=== PATIENT | female | born 1985 | race Hispanic/Latino ===

== ENCOUNTER 2023-10-24 15:28 | Emergency (ER) | payer SELFPAY ==
[2023-10-24 15:28] VITALS: BP 134/78; PULSE 96; RESP 16; TEMP 36.2; O2SAT 98
--- NOTE | 2023-10-24 15:54 | ED.VIS.GI ---
HPI HPI - GI History of Present Illness Chief Complaint: Nausea/Vomiting Informant: patient and family Abdominal Pain/Flank Pain Onset: Today Nausea/Vomiting/Emesis GI Symptom: Positive for Nausea and Vomiting Onset: Today and Hours Severity: Mild Diarrhea/Melena/Hematochezia GI Symptom: Negative for Diarrhea, Melena or Hematochezia Associated Symptoms Associated Symptoms: Negative for Dysuria, Frequency, Hematuria or Urgency Narrative Narrative: 38-year-old , [id number] female that we are using emergency room technician iPad to get history from both her and her family. No significant past medical history. Reportedly today started having nausea and vomiting. No significant abdominal pain. No fever. No dysuria. She takes a blood pressure medication occasionally but not daily. She has had no prior abdominal surgeries that they are aware of. She has had no recent hospitalizations. Prior similar symptoms: Yes PFSH PFS Medical History (Updated 10/24/23 @ 18:[address] Pedrito Parra MD) HTN (hypertension) HTN (hypertension) Medical History no medical history no medical history Home Medications ondansetron 4 mg disintegrating tablet 4 mg PO Q8H PRN nausea and vomiting #7 tabs 10/24/23 [Rx Last Taken Unknown] Allergy/AdvReac Type Severity Reaction Status Date / Time No Known Allergies Allergy Verified 10/24/23 15:30 Family History unable to obtain Surgical History no surgical history no surgical history Social History Smoking Status: Never smoker ROS ROS ED ROS Narrative Nausea and vomiting. Review of Systems ROS Unobtainable: Denies due to encephalopathy Constitutional Constitutional ED: Denies chills or fever(s) ENT ENT ED: Denies ear pain, rhinorrhea or sore throat Cardiovascular Cardiovascular: Denies chest pain or palpitations Respiratory/Chest Respiratory/Chest: Denies cough, dyspnea or dyspnea on exertion Gastrointestinal Gastrointestinal: Reports nausea and vomiting; Denies abdominal pain, constipation, diarrhea or melena Genitourinary Genitourinary ED: Denies dysuria or hematuria Musculoskeletal Musculoskeletal: Denies arthralgias, back pain or myalgias Integumentary Denies abscess, Abrasions or rash Neurologic Neurologic: Denies headache(s) Psychiatric Psychiatric: Denies anxiety or depression Endocrine Endocrinology: Denies polydipsia, polyphagia or polyuria Hematologic/Lymphatic Hematologic/Lymphatic: Denies easy bleeding Allergic/Immunologic Allergic/Immunologic ED: Denies mouth swelling EXAM Physical Exam Narrative Exam Narrative: Well-appearing 38-year-old female. Vital signs are stable afebrile. Initial blood pressure 134/78. Pulse ox 98% on room air no signs of hypoxia. No distress. HEENT exam unremarkable. Atraumatic. Moist mucous membranes. Pupils round reactive light. Scalp nontender. Neck nontender no lymphadenopathy. No meningismus. Lungs clear to auscultation bilaterally. Heart regular rhythm no murmur rate about 95. Chest wall and ribs nontender. Abdomen soft, nontender, nondistended without peritoneal signs. Normal bowel sounds. Soft. No hernia or mass. No distention. No right upper or right lower quadrant tenderness. No mass. Moving all 4 extremities. Nontender no edema. Normal motor strength. Back nontender. Neurologically she is awake and alert with no focal motor deficits. Const Vital Signs: 10/24/23 15:28 Temperature 97.2 F L Temperature Source Temporal Pulse Rate 96 Respiratory Rate 16 Blood Pressure 134/78 H Blood Pressure Mean 96 Pulse Ox 98 Oxygen Delivery Method Room Air Positive well nourished and well developed; Negative for obese, cachectic, contractures or unkempt General Appearance ED: well developed and NAD; Negative for unkempt, cachectic, contractures or pallor Nutritional Appearance: Negative for cachectic or obese HEENT Reports moist mucous membranes; Denies dry mucous membranes normocephalic and atraumatic; Negative for trauma or tenderness Mouth ED: No dry mucous membranes Mouth: No dry mucous membranes Eyes PERRL and EOMs intact bilaterally General Eye ED: Negative for pale conjunctiva, scleral icterus or other Neck no lymphadenopathy, supple and no JVD General: Negative for tenderness Carotids: Negative for other Lymph Lymphatic: Negative for other Resp normal respiratory effort and clear to auscultation bilaterally Effort and Inspection: Negative for respiratory distress Auscultation: Negative for rales, rhonchi or wheezes Cardio regular rate, regular rhythm, S1 normal heart sound, S2 normal heart sound and no murmurs Rate: Negative for bradycardia or tachycardic Rhythm: Negative for abnormal rhythm GI non-tender, non-distended and no masses Inspection: Negative for abdominal distention Auscultation: normoactive bowel sounds Palpation: soft; Negative for tender, guarding, rigid, hepatomegaly, splenomegaly, hernia, mass, pulsatile mass or rebound tenderness present Back/Spine no CVA tenderness General Back: Negative for CVA tenderness Cervical Spine: Negative for cervical spine tenderness Thoracic Spine / Upper Back: Negative for thoracic spinal tenderness Lumbar Spine / Lower Back: Negative for lumbar spinal tenderness Coccyx: Negative for other Extremity full ROM General Extremety ED: Negative for edema, tenderness or other findings General Extremity: Negative for edema or other findings Neuro CN's II-XII intact bilaterally, moves all extremities and No no sensory deficits noted Sensorium / Orientation: alert, oriented to person, oriented to place and oriented to time; Negative for orientation impaired, confused, lethargic or stuporous Motor Exam: strength 5/5 throughout; Negative for general weakness or strength abnormal Psych mental status grossly normal and thought process normal Appearance: Negative for unkempt Attitude: No agitated Mood & Affect: Negative for depressed, anxious or tearful Skin no wounds General Skin Exam: Negative for jaundice or pallor Rashes: no rashes Trauma: Negative for abrasion Nails: Negative for discolored MDM MDM MDM Narrative Medical decision making narrative: 38-year-old [id number] female with nausea and vomiting today. Exam benign. Moist mucous membranes. Most likely viral syndrome. Abdomen is nontender. She will be treated IV fluids. Screening labs. I do not think she needs any imaging. UA. IV Zofran and reevaluated. Repeat exam at 5:30 PM patient doing well. Abdomen benign. Using the emergency room technician I explained all test results with patient and family. They were allowed to ask additional questions. They are comfortable with her being discharged home. A prescription of Zofran to be sent to drug [place]. Outpatient follow-up. Return if worse. Clinically this appears to be a viral syndrome. History & Record Review Discussion w/independent historian: Patient, Family and Other (Using the emergency room technician iPad.) Additional record(s) reviewed:: No prior records Lab Data Attestation: I reviewed the patient's lab results. Lab results narrative: COVID, flu and RSV all negative. CBC white count of 5.9. H&H 11.6 and 35. Platelets 215. Electrolytes gap 4. Normal BUN of 16 creatinine 0.46. Glucose 140. Liver enzymes unremarkable. UA normal. No nitrates. Labs: Laboratory Results - last 24 hr 10/24/23 10/24/23 16:02 17:07 WBC 5.9 RBC 4.03 L Hgb 11.6 L Hct 35.0 L MCV 86.8 MCH 28.8 MCHC 33.1 RDW Std Deviation 40.5 RDW Coeff of Selene 12.5 Plt Count 215 MPV 11.8 Immature Gran % (Auto) 0.300 Neut % (Auto) 65.1 Lymph % (Auto) 23.6 Placer % (Auto) 7.1 Eos % (Auto) 3.4 Baso % (Auto) 0.5 Absolute Neuts (auto) 3.9 Absolute Lymphs (auto) 1.40 Nucleated RBC % 0 Sodium 140 Potassium 3.6 Chloride 111 H Carbon Dioxide 25.0 Anion Gap 4 L BUN 16 Creatinine 0.46 L Est GFR (MDRD) Af Amer 196 Est GFR (MDRD) Non-Af 162 BUN/Creatinine Ratio 35.0 H Glucose 140 H Calcium 8.3 L Total Bilirubin 0.20 AST 15 ALT 21 Alkaline Phosphatase 72 Total Protein 6.7 Albumin 3.6 Globulin 3.1 Albumin/Globulin Ratio 1.2 Urine Color Yellow Urine Clarity Sl. Cloudy Urine pH 6.0 Ur Specific [place] 1.025 Urine Protein 15 H Urine Glucose (UA) Normal Urine Ketones Negative Urine Occult Blood 10 H Urine Nitrite Negative Urine Bilirubin Negative Urine Urobilinogen Normal Ur Leukocyte Esterase 100 H Urine RBC 0 SEEN Urine WBC 0-5 SEEN Ur Squamous Epith Cells 5-10 SEEN Urine Bacteria 1+ Urine Mucus 1+ Discharge Plan Triage Chief Complaint: Nausea/Vomiting ED Provider: Pedrito Parra Dx/Rx/DC Orders Clinical Impression: Viral syndrome Instructions: ED Viral Syndrome (Adult) Prescriptions: New ondansetron 4 mg tablet,disintegrating 4 mg PO Q8H PRN (Reason: nausea and vomiting) Qty: 7 0RF Rx Instructions: As needed if having nausea or vomiting. May swallow the pill or let it dissolve under her tongue. Primary Care Provider: Care Physician,No Primary Referrals: Tello Ford MD [Non-Staff] - 3-5 Days if not improving NOT,DEFINED [Non-Staff] - Activity Restrictions/Additional Instructions: This appears to be a virus. Plenty of fluids and rest. Slowly increase diet as tolerated. Zofran as needed for nausea or vomiting. She can swallow it or let it dissolve under her tongue. Follow-up with a local doctor if not improving or return if worse. Print Language: Turkmen Disposition Disposition: Home, Self Care
[2023-10-24] MEDS: 0.9% Normal Saline (1000mL) 1,000 ML 1000 ML IV (16:00)
[2023-10-24] MEDS: Ondansetron 4 MG/2 ML Vial IV (16:00)
--- NOTE | 2023-10-24 16:00 | ED.RN ---
NO OLD EKG
[2023-10-24 16:13] LABS: Absolute Neutrophil Count 3.9 X10^3/uL (2.0-7.7); Basophil# 0.03 X10^3/uL; Basophil% 0.5 % (0-1); Eosinophils% 3.4 % (0-5); Hemoglobin 11.6 g/dL (12.0-15.0); Lymphocyte % 23.6 % (19-41); Mean Corp Hgb Conc 33.1 g/dL (32-36); Mean Corpuscular Hgb 28.8 pg (27.0-32.0); Mean Corpuscular Volume 86.8 fL (81-99); Mean Platelet Vol. 11.8 fl (6.2-12.0); Monocyte# 0.42 X10^3/uL; Monocyte% 7.1 % (0-10); NRBC Flagged by Analyzer 0 % (0-5); Neutrophil # 3.87 X10^3/uL (2.7-7.7); Neutrophil % 65.1 % (47-70); Platelet Count 215 K/mm3 (150-450); RBC Distribution Width CV 12.5 % (11.6-14.6); RBC Distribution Width SD 40.5 fl (35.1-43.9); Red Blood Count 4.03 M/mm3 (4.2-5.4); White Blood Count 5.9 K/mm3 (4.4-11.0)
[2023-10-24 16:32] LABS: ALB/GLOB Ratio 1.2 RATIO (0.9-2.4); AST(SGOT) 15 U/L (15-37); Alanine Aminotransfer ALT/SGPT 21 U/L (13-56); Albumin, Serum 3.6 g/dL (3.2-5.0); Alkaline Phosphatase 72 U/L (45-117); Anion Gap 4 (5-15); BUN 16 mg/dL (7-18); Calcium,Total 8.3 mg/dL (8.5-10.1); Chloride 111 mmol/L (98-107); Creatinine, Serum 0.46 mg/dL (0.55-1.02); EST Glomerular Filtration Rate 162 mL/min (>60); Est Glom Filt Rate - Afr Amer 196 mL/min (>60); Globulin 3.1 g/dL (2.2-4.2); Glucose 140 mg/dL (74-106); Potassium 3.6 mmol/L (3.5-5.1); Protein, Total 6.7 g/dL (6.4-8.2); Sodium Level 140 mmol/L (136-145)
[2023-10-24 17:11] LABS: Red Blood Cells-Urine 0 SEEN /hpf (0-5)
[2023-10-24 17:16] LABS: Color, Urine Yellow (Yellow); Glucose, Dipstick Normal (Normal); Ketone-Dipstick Negative (Negative); Leukocyte Esterase-Dipstick 100 /ul (Negative); Nitrite-Dipstick Negative (Negative); Occult Blood-Urine 10 /ul (Negative); Protein-Dipstick 15 mg/dl (Negative); Specific Gravity, Urine 1.025 (1.002-1.030); Urine Bilirubin Dipstick Negative (Negative); Urine Clarity Sl. Cloudy (Clear); Urine Urobilinogen Normal (Normal)
[2023-10-24 17:28] LABS: Squamous Epithelial Cells - UA 5-10 SEEN /hpf (5-10)
[2023-10-24 17:29] LABS: Bacteria 1+ /hpf (None Seen); Mucous, Urine 1+ /hpf (<or=2+); White Blood Cells 0-5 SEEN /hpf (0-5)
== END 2023-10-24 18:26 | disposition home or self-care (01) ==
PROVIDERS: Emergency Provider Emergency Medicine; Visit Provider Emergency Medicine
DX: B34.9 Viral infection, unspecified (principal); R11.2 Nausea with vomiting, unspecified; I10 Essential (primary) hypertension; Z79.899 Other long term (current) drug therapy
CPT/HCPCS: 80053; 81001; 85025; 87631; 93005; 96361; 96374; 99283; J7030; A4216; J2405